=== PATIENT | male | born 1985 | race Caucasian/White ===

== ENCOUNTER 2016-06-12 17:02 | Emergency (ER) | payer OTHER ==
[2016-06-12] MEDS ORDERED: MAG HYDROX/AL HYDROX/SIMETH SUSP 30 ML UDCUP PO ONE (18:30)
[2016-06-12] MEDS ORDERED: LORAZEPAM 1 MG TABLET PO ONE ×2 (18:30→21:01)
[2016-06-12] MEDS ORDERED: LIDOCAINE 2% VISCOUS SOLN 20 ML UDCUP PO ONE (18:30)
[2016-06-12] MEDS ORDERED: METOCLOPRAMIDE HCL ORAL SOLN 10 MG/10 ML UDCUP PO ONE (18:30)
--- NOTE | 2016-06-12 18:33 | ER Document Report ---
ED Substance Abuse / Acc. OD - General Chief Complaint: Alcohol Withdrawl Stated Complaint: ANXIETY Time seen by provider: 18:31 Mode of Arrival: Ambulatory Information source: Patient TRAVEL OUTSIDE OF THE [place] IN LAST 30 DAYS: No - HPI Patient complains to provider of: Alcohol abuse Onset/Duration: Persistent Quality of pain: Achy Severity: Mild Pain Level: 2 Associated Symptoms: Fever/chills/sweaty, Vomiting blood, Tremors Similar symptoms previously: Yes Recently seen / treated by doctor: No Notes: Patient is a 30-year-old male with a history of duodenal ulcer, not currently on any medications, [facility] of [facility] and withdrawal symptoms, he states he's been drinking heavily for years, typically drinks anywhere from 6-8 beers a day and sometimes up to 18 or more beers, states he goes to different phases, last time he went through detox program was in 2012, other times he is attempted to quit cold turkey on his own, over the past few weeks he is experiencing intermittent tremors, hot and cold sweats, and vomiting episodes daily as well as diarrhea, he denies any blood in his vomit or stools, he is reporting some epigastric pain , he is not currently taking any medication for his duodenal ulcer, his last beer was approximately 2 hours ago, he drank 4 beers throughout the day today, which he reports put his tremors at bay, he denies any suicidal or homicidal ideation Past Medical History - General Information source: Patient - Social History Smoking Status: Former Smoker Frequency of alcohol use: None Drug Abuse: Marijuana Family History: Reviewed & Not Pertinent Renal/ Medical History: Denies: Hx Peritoneal Dialysis Past Surgical History: Reports: Hx Vascular Surgery - varicose vein left testical - Immunizations Hx Diphtheria, Pertussis, Tetanus Vaccination: Yes Review of Systems - Review of Systems Constitutional: No symptoms reported EENT: No symptoms reported Cardiovascular: No symptoms reported Respiratory: No symptoms reported Gastrointestinal: See HPI Genitourinary: No symptoms reported Male Genitourinary: No symptoms reported Musculoskeletal: No symptoms reported Skin: No symptoms reported Hematologic/Lymphatic: No symptoms reported Neurological/Psychological: See HPI -: Yes All other systems reviewed and negative Physical Exam - Vital signs Vitals: Temp Pulse Resp BP Pulse Ox 98.3 F 69 18 155/92 H 97 06/12/16 17:06 06/12/16 17:06 06/12/16 17:06 06/12/16 17:06 06/12/16 17:06 Interpretation: Normal - General General appearance: Appears well, Alert - HEENT Head: Normocephalic, Atraumatic Eyes: Normal Pupils: PERRL - Respiratory Respiratory status: No respiratory distress Chest status: Nontender Breath sounds: Normal Chest palpation: Normal - Cardiovascular Rhythm: Regular Heart sounds: Normal auscultation Murmur: No - Abdominal Inspection: Normal Distension: No distension Bowel sounds: Normal Tenderness: Nontender Organomegaly: No organomegaly - Back Back: Normal, Nontender - Extremities General upper extremity: Normal inspection, Nontender, Normal color, Normal ROM , Normal temperature General lower extremity: Normal inspection, Nontender, Normal color, Normal ROM , Normal temperature, Normal weight bearing. No: Yandel's sign - Neurological Neuro grossly intact: Yes Cognition: Normal Orientation: AAOx4 [place] Coma Scale Eye Opening: Spontaneous [place] Coma Scale Verbal: Oriented [place] Coma Scale Motor: Obeys Commands Rhett Coma Scale Total: 15 Speech: Normal Motor strength normal: LUE, RUE, LLE, RLE Sensory: Normal - Psychological Associated symptoms: Normal affect, Normal mood - Skin Skin Temperature: Warm Skin Moisture: Dry Skin Color: Normal Course - Re-evaluation Re-evalutation: 06/12/16 21:01 Patient resting comfortably, he has slight hand tremors, but otherwise appears in no acute distress, he reports feeling much better after receiving Ativan, laboratory findings were discussed with patient and father at bedside, I offered to admit patient to this hospital or hold him in the emergency room overnight to speak to the mental health team in the morning, however he denies suicidal or homicidal ideation and states he would prefer to go home and follow- up at the [facility] first thing in the morning for addiction treatment counseling, therefore patient will be discharged with a prescription for Ativan, as well as instructions for follow-up, and advised to return at any time if his symptoms worsen or he has any additional concerns, patient and father at bedside acknowledge understanding and agreement with this plan - Vital Signs Vital signs: Temp Pulse Resp BP Pulse Ox 98.3 F 76 18 156/90 H 96 06/12/16 17:06 06/12/16 21:29 06/12/16 21:29 06/12/16 21:29 06/12/16 21:29 - Laboratory Result Diagrams: 06/12/16 19:58 06/12/16 19:58 Laboratory results interpreted by me: 06/12/16 06/12/16 19:10 19:58 Calcium 10.4 H Total Bilirubin 2.0 H Direct Bilirubin 0.6 H AST 104 H ALT 139 H Total Protein 8.5 H Urine Ketones TRACE H Salicylates < 1.0 L Acetaminophen < 10 L - EKG Interpretation by Me EKG shows normal: Sinus rhythm Rate: Normal Rhythm: NSR Discharge - Discharge Clinical Impression: Alcohol abuse Condition: Stable Disposition: HOME, SELF-CARE Instructions: Chronic Alcoholism ([facility]), Alcohol Withdrawl ([facility]) Additional Instructions: [facility] with [facility]. Return to the nearest emergency room immediately if symptoms worsen or any additional concerns. Prescriptions: Bismuth Subsalicylate [Maalox] 1 dose PO DAILY PRN #1 bottle PRN Reason: Famotidine [Pepcid 20 mg Tablet] 20 mg PO BID #60 tablet Lorazepam [Ativan 1 mg Tablet] 1 mg PO Q6 #20 tab Forms: Return to Work
[2016-06-12 19:43] LABS: APPEARANCE,URINE CLEAR; BILIRUBIN,URINE NEGATIVE (NEGATIVE); GLUCOSE, URINE NEGATIVE (NEGATIVE); KETONES,URINE TRACE mg/dL (NEGATIVE); LEUKOCYTE ESTERASE,URINE NEGATIVE (NEGATIVE); NITRITE,URINE NEGATIVE (NEGATIVE); PROTEIN,URINE NEGATIVE (NEGATIVE); URINE SPECIFIC GRAVITY 1.003; UROBILINOGEN,URINE NEGATIVE mg/dL (<2.0)
[2016-06-12 19:57] LABS: URINE BARBITURATES SCREEN NEGATIVE; URINE METHADONE SCREEN NEGATIVE; URINE OPIATES LOW NEGATIVE; URINE PHENCYCLIDINE SCREEN NEGATIVE
[2016-06-12 20:20] LABS: ABSOLUTE BASOPHILS # (AUTO) 0.1 10^3/uL (0.0-0.2); ABSOLUTE LYMPHOCYTES (AUTO) 1.1 10^3/uL (0.5-4.7); ABSOLUTE MONOCYTES (AUTO) 0.6 10^3/uL (0.1-1.4); ABSOLUTE NEUT (AUTO) 2.9 10^3/uL (1.7-8.2); BASOPHILS % (AUTO) 1.5 % (0-2); EOSINOPHILS % (AUTO) 0.8 % (0-6); HEMATOCRIT 47.9 % (37.9-51.0); HEMOGLOBIN 16.1 g/dL (13.5-17.0); HGB HCT DIFFERENCE 0.4; LYMPHOCYTES % (AUTO) 23.6 % (13-45); MEAN CORPUSCULAR HEMOGLOBIN 31.8 pg (27.0-33.4); MEAN CORPUSCULAR HGB CONC 33.5 g/dL (32.0-36.0); MEAN CORPUSCULAR VOLUME 95 fl (80-97); MONOCYTES % (AUTO) 12.4 % (3-13); RED BLOOD COUNT 5.05 10^6/uL (4.35-5.55); RED CELL DISTRIBUTION WIDTH 12.9 % (11.5-14.0); SEGMENTED NEUTROPHILS % (AUTO) 61.7 % (42-78); WHITE BLOOD COUNT 4.8 10^3/uL (4.0-10.5)
[2016-06-12 20:42] LABS: BLOOD UREA NITROGEN 7 mg/dL (7-20); CALCIUM 10.4 mg/dL (8.4-10.2); CREATININE RESULT 0.74 mg/dL (0.52-1.25); GLUCOSE 94 mg/dL (75-110)
[2016-06-12 20:43] LABS: ALANINE AMINOTRANSFERASE 139 U/L (21-72); ALBUMIN 4.8 g/dL (3.5-5.0); ALCOHOL 18 mg/dL (NONE DETECTED); ALKALINE PHOSPHATASE 84 U/L (38-126); ANION GAP 14 (5-19); ASPARTATE AMINO TRANSFERASE 104 U/L (17-59); BILIRUBIN,DIRECT 0.6 mg/dL (0.0-0.4); CARBON DIOXIDE 29 mmol/L (22-30); CHLORIDE 99 mmol/L (98-107); POTASSIUM 3.9 mmol/L (3.6-5.0); TOTAL PROTEIN 8.5 g/dL (6.3-8.2)
[2016-06-12] MEDS ORDERED: LORAZEPAM INJ 2 MG/1 ML VIAL IM ONE (21:01)
--- NOTE | 2016-06-12 21:17 | EKG REPORT ---
SEVERITY:- BORDERLINE ECG - SINUS RHYTHM BORDERLINE PROLONGED QT INTERVAL : Confirmed by: Hunter Tripp 12-Jun-2016 21:16:57
[2016-06-12 22:41] VITALS: BP 156/90
== END 2016-06-12 21:30 | disposition home or self-care (01) ==
LOC: ER 17:02
DX: F10.10 Alcohol abuse, uncomplicated (principal); R50.9 Fever, unspecified; R11.10 Vomiting, unspecified
CPT/HCPCS: 93005; 99285; 96372; 36415; 80307 ×4; 85025; 80053; 81001; 93010; J3490; J2060

== ENCOUNTER 2018-03-12 15:16 | Emergency (ER) | payer OTHER ==
[2018-03-12] MEDS ORDERED: IBUPROFEN 800 MG TABLET PO ONE (15:45)
[2018-03-12] MEDS ORDERED: IBUPROFEN 800 MG TABLET ONE (15:47)
[2018-03-12] MEDS ORDERED: RINGERS SOLUTION,LACTATED 1,000 ML IV ONE (16:22)
--- NOTE | 2018-03-12 16:24 | ER Document Report ---
ED Medical Screen (RME) - General Chief Complaint: Flu Symptoms Stated Complaint: FLU LIKE SYMPTOMS Time Seen by Provider: 03/12/18 16:12 Mode of Arrival: Ambulatory Information source: Patient Notes: This is a 32-year-old man with a history of alcohol abuse who presents to the emergency room with nausea, vomiting, fever, cough and congestion. Patient notes body aches and pains. He denies neck stiffness or photophobia. Patient's had fever and cough and congestion for the past day. He has had sick contacts at home. He states that he stopped drinking because of the symptoms and now is having withdrawal. He does have a history of withdrawal encompassing tremors. He is never had any seizures or required any hospitalization. TRAVEL OUTSIDE OF THE [place] IN LAST 30 DAYS: No - HPI Onset: Last week Onset/Duration: Gradual Quality of pain: Achy, Dull Severity: Mild Associated Symptoms: Cough (nonproductive), Fever, Nausea. denies: Shortness of breath Exacerbated by: Denies Relieved by: Denies Similar symptoms previously: Yes Recently seen / treated by doctor: Yes - Related Data Smoking: Non-smoker Frequency of alcohol use: Heavy Drug Abuse: None Allergies/Adverse Reactions: No Known Allergies Allergy (Unverified 03/12/18 15:26) Past Medical History - General Information source: Patient - Social History Cigarette use (# per day): No Chew tobacco use (# tins/day): No Frequency of alcohol use: Heavy Drug Abuse: Marijuana Family history: None Neurological Medical History: Reports: Hx Migraine Renal/ Medical History: Denies: Hx Peritoneal Dialysis Past Surgical History: Reports: Hx Vascular Surgery - varicose vein left testical - Immunizations Hx Diphtheria, Pertussis, Tetanus Vaccination: Yes Review of Systems - Review of Systems Constitutional: Chills, Fever EENT: No symptoms reported Cardiovascular: denies: Chest pain, Palpitations, Heart racing Respiratory: Cough. denies: Short of breath, Sputum Gastrointestinal: Nausea, Vomiting Genitourinary: No symptoms reported Male Genitourinary: No symptoms reported Musculoskeletal: No symptoms reported Skin: No symptoms reported Hematologic/Lymphatic: No symptoms reported Neurological/Psychological: Tremor Physical Exam - Vital signs Vitals: Temp Pulse Resp BP Pulse Ox 102.4 F H 116 H 16 141/59 H 99 03/12/18 15:40 03/12/18 15:40 03/12/18 15:40 03/12/18 15:40 03/12/18 15:40 Notes: Physical exam: GENERAL: 32-year-old man, alert and oriented x3, febrile, coughing. No acute distress. She does complain of nausea. HEAD: Atraumatic, normocephalic. EYES: Pupils equal round and reactive to light, extraocular movements intact, sclera anicteric, conjunctiva are normal. ENT: TMs normal, nares patent, oropharynx clear without exudates. Moist mucous membranes. NECK: Normal range of motion, supple without obvious mass LUNGS: Breath sounds clear to auscultation bilaterally and equal. No wheezes rales or rhonchi. HEART: Regular rate and rhythm without murmurs, rubs or gallops. ABDOMEN: Soft, normoactive bowel sounds. No tenderness to palpation. No guarding, no rebound. No masses appreciated. EXTREMITIES: Normal range of motion, no pitting or edema. No clubbing or cyanosis. NEUROLOGICAL: Cranial nerves II through XII grossly intact. No photophobia, neck supple. Normal speech, moving all extremities. She is mildly tremulous. PSYCH: [place] is alert and oriented x3. He does appear appropriate. Normal mood, normal affect. SKIN: Warm, Dry, normal turgor, no rashes or lesions noted. Course - Re-evaluation Re-evalutation: 03/12/18 18:01 Note: The patient does have a history of alcohol abuse and has had withdrawal in the past but is never required admission for his withdrawals. He reports being shaky and uncomfortable and then will do fine. He denies any history of seizures or DTs. He had a family member with a viral syndrome and he started to get sick and has had upper respiratory symptoms associated with a fever consistent with an acute viral illness. Because of the illness, he stopped drinking and now is having some alcohol withdrawal. On physical exam, he is alert and oriented in no acute distress. He has a nonproductive cough and fever. He has congestion. His oxygen saturation is good and his lungs are clear and his chest x-ray is clear. 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 He was given IV fluids because he had some nausea and he states he is feeling much better on reassessment. He looks quite stable on reassessment and he is okay with going home. I will give him some Valium for the symptoms of alcohol withdrawal. I am encouraging him to drink fluids. He does take B vitamins. I will give him medicine for nausea as well. He does have follow-up at the [place]. I have discussed with him about getting into a rehab program and he is serious about it and he does plan on doing it when he gets over his viral illness. - Vital Signs Vital signs: Temp Pulse Resp BP Pulse Ox 99.9 F 100 16 157/96 H 96 03/12/18 18:23 03/12/18 18:23 03/12/18 18:23 03/12/18 18:23 03/12/18 18:23 - Laboratory Result Diagrams: 03/12/18 16:51 03/12/18 16:51 Laboratory results interpreted by me: 03/12/18 03/12/18 16:51 16:51 Hgb 17.9 H Seg Neuts % (Manual) 87 H Lymphocytes % (Manual) 5 L Sodium 135.6 L Chloride 94 L BUN 6 L Total Bilirubin 1.8 H Direct Bilirubin 0.7 H AST 102 H ALT 113 H Total Protein 8.4 H Albumin 5.1 H - Diagnostic Test Radiology reviewed: Image reviewed, Reports reviewed - X-ray shows no infiltrates Doctor's Discharge - Discharge Clinical Impression: Acute viral syndrome, Acute alcohol withdrawal Condition: Stable Disposition: HOME, SELF-CARE Additional Instructions: As we discussed, I think it is important that you go back into rehab. So I want you to continue to avoid alcohol. Take the Valium and gradually wean down to help with the symptoms of alcohol withdrawal. Take the Valium Taper as described below: Taper: 2 tabs (10 mg total) every 6 hours X 1 day. Then 2 tabs (10 mg total) every 8 hours for day 2. Then 2 tabs (10 mg total) every 12 hours for day 3. Then 2 tabs (10 mg total) on day 4. Then stop. Go to the alcohol rehab when your viral syndrome has subsided. Rest, drink plenty of fluids, continue with the B vitamins. Take Zofran for nausea. Return to the emergency room for any concerns that you are getting worse: Shortness of breath, neck pain, light bothering the eyes, rash, confusion. Prescriptions: Diazepam [Valium 5 mg Tablet] 10 mg PO QIDP PRN #20 tablet PRN Reason:
--- NOTE | 2018-03-12 17:00 | RADIOLOGY REPORT (SQ) ---
EXAM DESCRIPTION: CHEST 2 VIEWS COMPLETED DATE/TIME: 03/12/2018 4:40 pm REASON FOR STUDY: cough, fever COMPARISON: None. EXAM PARAMETERS: NUMBER OF VIEWS: two views TECHNIQUE: Digital Frontal and Lateral radiographic views of the chest acquired. RADIATION DOSE: NA LIMITATIONS: none FINDINGS: LUNGS AND PLEURA: No opacities, masses or pneumothorax. No pleural effusion. MEDIASTINUM AND HILAR STRUCTURES: No masses or contour abnormalities. HEART AND VASCULAR STRUCTURES: Heart normal size. No evidence for failure. BONES: No acute findings. HARDWARE: None in the chest. OTHER: No other significant finding. IMPRESSION: NO ACUTE RADIOGRAPHIC FINDING IN THE CHEST. TECHNICAL DOCUMENTATION: JOB ID: [id number] [employer]- All Rights Reserved Reading location - IP/workstation name: [email or web address]
[2018-03-12 17:09] LABS: HEMOGLOBIN 17.9 g/dL (13.5-17.0); MEAN CORPUSCULAR HEMOGLOBIN 32.8 pg (27.0-33.4); MEAN CORPUSCULAR HGB CONC 35.1 g/dL (32.0-36.0); MEAN CORPUSCULAR VOLUME 94 fl (80-97); PLATELET COUNT 190 10^3/uL (150-450); RED BLOOD COUNT 5.45 10^6/uL (4.35-5.55); RED CELL DISTRIBUTION WIDTH 12.3 % (11.5-14.0); WHITE BLOOD COUNT 9.2 10^3/uL (4.0-10.5)
[2018-03-12 17:25] LABS: A TYPE INFLUENZA AG NEGATIVE (NEGATIVE); B INFLUENZA AG NEGATIVE (NEGATIVE)
[2018-03-12 17:26] LABS: ALANINE AMINOTRANSFERASE 113 U/L (21-72); ALBUMIN 5.1 g/dL (3.5-5.0); ALKALINE PHOSPHATASE 123 U/L (38-126); ANION GAP 17 (5-19); ASPARTATE AMINO TRANSFERASE 102 U/L (17-59); BILIRUBIN,DIRECT 0.7 mg/dL (0.0-0.4); BILIRUBIN,TOTAL 1.8 mg/dL (0.2-1.3); BLOOD UREA NITROGEN 6 mg/dL (7-20); CALCIUM 9.9 mg/dL (8.4-10.2); CARBON DIOXIDE 25 mmol/L (22-30); CHLORIDE 94 mmol/L (98-107); GLUCOSE 93 mg/dL (75-110); POTASSIUM 3.6 mmol/L (3.6-5.0); SODIUM 135.6 mmol/L (137-145); TOTAL PROTEIN 8.4 g/dL (6.3-8.2)
[2018-03-12 17:30] LABS: ABSOLUTE LYMPHOCYTES# (MANUAL) 0.5 10^3/uL (0.5-4.7); ABSOLUTE MONOCYTES # (MANUAL) 0.7 10^3/uL (0.1-1.4); BASOPHILS % (MANUAL) 0 % (0-2); EOSINOPHILS % (MANUAL) 0 % (0-6); LYMPHOCYTES % (MANUAL) 5 % (13-45); MONOCYTES % (MANUAL) 8 % (3-13); SEGMENTED NEUTROPHILS % (MAN) 87 % (42-78); TOTAL CELLS COUNTED 100
[2018-03-12 17:31] LABS: PLATELET COMMENT ADEQUATE; TOXIC GRANULATION SLIGHT
[2018-03-12 18:24] VITALS: BP 157/96
== END 2018-03-12 18:25 | disposition home or self-care (01) ==
LOC: ER 15:16
DX: B34.9 Viral infection, unspecified (principal); F10.239 Alcohol dependence with withdrawal, unspecified; R05 Cough; R50.9 Fever, unspecified; R25.1 Tremor, unspecified; R11.2 Nausea with vomiting, unspecified; R52 Pain, unspecified; R74.8 Abnormal levels of other serum enzymes; F12.10 Cannabis abuse, uncomplicated
CPT/HCPCS: 99285; 96360; 36415; 87070; 87880; 85025; 80053; 87804; 71046; J7120